=== PATIENT | male | born 1960 | race Caucasian/White ===

== ENCOUNTER 2016-08-12 14:40 | Emergency (ER) | payer OTHER ==
[2016-08-12 14:56] VITALS: TEMP 98.1
--- NOTE | 2016-08-12 15:33 | DX ---
Right Shoulder , 3 Views History: Pain post trauma. Fell on ice today. Findings: Difficult to exclude a superior medial right humeral head shearing fracture, without displa cement versus artifact. Ovoid soft tissue swelling superior to the mid right clavicle may represent a n enlarged lymph node or hematoma. No clavicular or rib fracture is identified. The humeral head is w ell rounded and normally located. No dislocation is identified. Impression: 1. Equivocal articular surface humeral head fracture. 2. Supraclavicular adenopathy versus hematoma without underlying fracture. Results discussed with Dr. Fritz Seymour.
--- NOTE | 2016-08-12 15:43 | EDPHY ---
General Narrative: CHIEF COMPLAINT: Right shoulder pain, fall HISTORY OF PRESENT ILLNESS: Slipped and fell on the ice earlier today, 1 on the right shoulder. No head or neck injury. No LOC. No chest or back pain. No injury to left shoulder, which is 2 weeks status post rotator cuff and labrum repair. Pain is [id number] in the right shoulder at rest. Worse with any palpation or movement. Significantly worse with abduction and flexion of the shoulder. No pain in the ipsilateral brachium, elbow, forearm, wrist or hand. No numbness or tingling. No cyanosis or pallor. No other associated complaints or modifying factors. PRIOR ORTHO INJURIES: Left shoulder rotator cuff and labrum ESTABLISHED ORTHOPEDIST: Dr. Hodges REVIEW OF SYSTEMS: Ten systems reviewed and are negative unless otherwise noted in the HPI EXAMINATION General Appearance: Alert, no distress Head: normocephalic, atraumatic. No hematoma, abrasions, contusions or lacerations Eyes: Pupils equal and round, no conjunctival pallor or injection ENT, Mouth: Mucous membranes moist. Uvula midline. Neck: Normal inspection . No bony tenderness or crepitus Respiratory: No dyspnea or retractions. No distress Cardiovascular: Pulses normal throughout. Brisk cap refill Back: non-tender, no bony abnormalities Neurological: A&O, sensory symmetric, strength symmetric Skin: Warm and dry, no rash Extremities: left upper extremity: Sling in place. No tenderness to palpation at any level of the arm. Range of motion not tested secondary to postoperative status. Right upper extremity: Tenderness to palpation at the glenohumeral joint line and AC joint. Passive range of motion is painless. Activation of motion is painful with abduction and flexion. There is no tenderness on the ipsilateral arm, elbow, forearm or wrist. No wrist drop. Strength is 5/5 in the right hand Psychiatric: Mood and affect normal DIFFERENTIAL DIAGNOSES: Including but not limited to sprain, strain, fracture, dislocation MDM: 3:40 p.m. mechanical fall with blunt trauma to the right shoulder. He has shoulder pain but has no pain distal to the shoulder. Additionally he is neurovascularly intact distal to the shoulder pain. Radiologist questioned a small lucency in the humeral head. On repeat examination the pain is more elicited with active range of motion and no pain with passive range of motion. I did offer a CT scan to further delineate this, but the patient has declined. He would like to be discharged home. He will follow up with his established orthopedist Dr. Hodges. Will contact him for follow-up next week. We did discuss return to the emergency department precautions and is comfortable with this plan. He also declined any pain medication at this time ED Precautions: Worsening pain. Erythema, edema, cyanosis, pallor, paresthesia or anesthesia. SUPERVISION: This patient was independently evaluated without the aide of supervising physician. - History Smoking Status: Never smoked - Objective Vital Signs: Initial Vital Signs Temperature (C) 98.1 F 08/12/16 14:53 Heart Rate 67 08/12/16 14:53 Respiratory Rate 18 08/12/16 14:53 Blood Pressure 175/121 H 08/12/16 14:53 O2 Sat (%) 98 08/12/16 14:53 O2 Delivery Mode Room Air Allergies/Adverse Reactions: Penicillins Allergy (Verified 08/12/16 14:52) Home Medications: Medication Instructions Recorded Lasix 08/12/16 Metoprolol Succinate 08/12/16 Departure - Departure Disposition: Home, Routine, Self-Care Clinical Impression: Sprain of shoulder Qualifiers: Encounter type: initial encounter Shoulder sprain type: unspecified sprain Laterality: right Qualifier Code: (S43.401A) Unspecified sprain of right shoulder joint, initial encounter Condition: Good Instructions: Shoulder Sprain (ED) Additional Instructions: follow-up with established orthopedist for definitive care. Return to the ER for worsening pain, numbness, tingling, wrist drop. Referrals: Yamilex Lehman MD [Primary Care Provider] - As per Instructions Isaiah Hodges MD [Medical Doctor] - As per Instructions
[2016-08-12 16:08] VITALS: BP 168/98; PULSE 61; RESP 16; O2SAT 96
== END 2016-08-12 16:07 | disposition home or self-care (01) ==
DX: S43.401A Unspecified sprain of right shoulder joint, initial encounter (principal); W00.0XXA Fall on same level due to ice and snow, initial encounter

== ENCOUNTER → 2018-03-23 | Outpatient (CLI) | payer OTHER | LOC: BMCIMAGING 10:42 | PROVIDERS: ATTEND Internal Medicine | DX: R50.9 Fever, unspecified (principal) ==